=== PATIENT | male | born 1985 | race Two or more races ===

== ENCOUNTER 2017-03-31 19:08 | Emergency (ER) | payer SELFPAY ==
[2017-03-31] MEDS ORDERED: ONDANSETRON HCL INJ/PF 4 MG/2 ML SDV IV ONE (19:23)
--- NOTE | 2017-03-31 19:24 | ER Document Report ---
ED Medical Screen (RME) - General Chief Complaint: Back Pain Stated Complaint: GROIN PAIN Time Seen by Provider: 03/31/17 19:20 TRAVEL OUTSIDE OF THE [place] IN LAST 30 DAYS: No - HPI Notes: 03/31/17 19:23 Pain underneath patient scrotum her for states scrotum is symmetric no change in the waist testicles look today. Patient states pain started after he picked up his girlfriend. Also states multiple episodes of nausea vomiting. - Related Data Allergies/Adverse Reactions: No Known Allergies Allergy (Unverified 03/31/17 19:17) Past Medical History Renal/ Medical History: Denies: Hx Peritoneal Dialysis Review of Systems - Review of Systems Gastrointestinal: Nausea, Vomiting Physical Exam - Vital signs Vitals: Temp Pulse Resp BP Pulse Ox 98.9 F 117 H 18 91/71 L 100 03/31/17 19:12 03/31/17 19:12 03/31/17 19:12 03/31/17 19:12 03/31/17 19:12 - Cardiovascular Rhythm: Regular Heart sounds: Normal auscultation Course - Vital Signs Vital signs: Temp Pulse Resp BP Pulse Ox 98.9 F 117 H 18 91/71 L 100 03/31/17 19:12 03/31/17 19:12 03/31/17 19:12 03/31/17 19:12 03/31/17 19:12
[2017-03-31 19:34] LABS: ABSOLUTE BASOPHILS # (AUTO) 0.1 10^3/uL (0.0-0.2); ABSOLUTE LYMPHOCYTES (AUTO) 1.5 10^3/uL (0.5-4.7); ABSOLUTE NEUT (AUTO) 5.9 10^3/uL (1.7-8.2); BASOPHILS % (AUTO) 1.1 % (0-2); EOSINOPHILS % (AUTO) 0.1 % (0-6); HEMATOCRIT 48.3 % (37.9-51.0); HEMOGLOBIN 16.4 g/dL (13.5-17.0); HGB HCT DIFFERENCE 0.9; LYMPHOCYTES % (AUTO) 17.1 % (13-45); MEAN CORPUSCULAR VOLUME 86 fl (80-97); MONOCYTES % (AUTO) 12.2 % (3-13); RED BLOOD COUNT 5.64 10^6/uL (4.35-5.55); RED CELL DISTRIBUTION WIDTH 13.7 % (11.5-14.0); SEGMENTED NEUTROPHILS % (AUTO) 69.5 % (42-78); WHITE BLOOD COUNT 8.5 10^3/uL (4.0-10.5)
[2017-03-31 19:57] LABS: ALANINE AMINOTRANSFERASE 26 U/L (21-72); ALBUMIN 4.7 g/dL (3.5-5.0); ALKALINE PHOSPHATASE 56 U/L (38-126); ANION GAP 12 (5-19); ASPARTATE AMINO TRANSFERASE 22 U/L (17-59); BILIRUBIN,DIRECT 0.4 mg/dL (0.0-0.4); BLOOD UREA NITROGEN 15 mg/dL (7-20); CALCIUM 10.1 mg/dL (8.4-10.2); CARBON DIOXIDE 26 mmol/L (22-30); CHLORIDE 100 mmol/L (98-107); CREATININE RESULT 1.21 mg/dL (0.52-1.25); GLUCOSE 93 mg/dL (75-110); LIPASE 37.9 U/L (23-300); POTASSIUM 4.5 mmol/L (3.6-5.0); SODIUM 138.3 mmol/L (137-145); TOTAL PROTEIN 8.4 g/dL (6.3-8.2)
--- NOTE | 2017-03-31 20:14 | ER Document Report ---
ED GI/ - General Chief Complaint: Back Pain Stated Complaint: GROIN PAIN Time Seen by Provider: 03/31/17 19:20 Mode of Arrival: Ambulatory Information source: Patient Notes: 31-year-old male presents to ED for scrotal pain and low back pain abdominal pain and nausea and vomiting since last night when he picked up his girlfriend. He states he's had vomiting 3 today last one at 11:00 this morning. TRAVEL OUTSIDE OF THE [place] IN LAST 30 DAYS: No - HPI Patient complains to provider of: Groin pain, Other - Back pain Onset: Yesterday Timing/Duration: Intermittent Quality of pain: Sharp Severity at maximum: Moderate Severity in ED: Moderate Pain Level: 4 Location: Pelvis, Left testicle, Right testicle, Other - Low back Associated symptoms: Nausea, Vomiting Exacerbated by: Movement, Walking Relieved by: Denies Similar symptoms previously: No Recently seen / treated by doctor: No - Related Data Allergies/Adverse Reactions: No Known Allergies Allergy (Verified 03/31/17 20:28) Past Medical History - General Information source: Patient - Social History Smoking Status: Current Every Day Smoker Cigarette use (# per day): Yes - half pack a day Chew tobacco use (# tins/day): No Smoking Education Provided: Yes - acetaminophen Frequency of alcohol use: None Drug Abuse: None Occupation: review Lives with: Parents Family History: Arthritis, CAD, COPD, Hyperlipidemia, Hypertension Patient has suicidal ideation: No Patient has homicidal ideation: No - Past Medical History Cardiac Medical History: Reports: None Pulmonary Medical History: Reports: None EENT Medical History: Reports: None Neurological Medical History: Reports: None Endocrine Medical History: Reports: None Renal/ Medical History: Reports: None Malignancy Medical History: Reports None GI Medical History: Reports: None Musculoskeltal Medical History: Reports Hx Musculoskeletal Deformity - Scoliosis , Reports Hx Musculoskeletal Trauma - Fractured ankle Skin Medical History: Reports Hx Cellulitis Psychiatric Medical History: Reports: None Traumatic Medical History: Reports: Hx Fractures - Ankle Infectious Medical History: Reports: None Surgical Hx: Negative Past Surgical History: Reports: None - Immunizations Immunizations up to date: Yes Hx Diphtheria, Pertussis, Tetanus Vaccination: Yes Review of Systems - Review of Systems Constitutional: Recent illness EENT: No symptoms reported Cardiovascular: No symptoms reported Respiratory: No symptoms reported Gastrointestinal: Nausea, Vomiting Genitourinary: No symptoms reported Male Genitourinary: Other - Bilateral scrotal pain Musculoskeletal: Back pain Skin: No symptoms reported Hematologic/Lymphatic: No symptoms reported Neurological/Psychological: No symptoms reported Physical Exam - Vital signs Vitals: Temp Pulse Resp BP Pulse Ox 98.9 F 117 H 18 91/71 L 100 03/31/17 19:12 03/31/17 19:12 03/31/17 19:12 03/31/17 19:12 03/31/17 19:12 Interpretation: Normal - General General appearance: Appears well, Alert - HEENT Head: Normocephalic, Atraumatic Eyes: Normal Pupils: PERRL - Respiratory Respiratory status: No respiratory distress Chest status: Nontender Breath sounds: Normal Chest palpation: Normal - Cardiovascular Rhythm: Regular Heart sounds: Normal auscultation Murmur: No - Abdominal Inspection: Normal Distension: No distension Bowel sounds: Normal Tenderness: Nontender Organomegaly: No organomegaly - Genitourinary Inspection: Normal Tenderness: Testicle tender. No: Epididymis tender Cremasteric reflex: Normal Scrotum: Normal Notes: Rectal exam did not show any prostate tenderness or bogginess. Good muscle tone. - Back Back: Normal, Tender - Bilateral muscle tenderness no vertebral tenderness. No : Deformity/step-off, CVA tenderness, Vertebra tenderness, Scars, Wounds - Extremities General upper extremity: Normal inspection, Nontender, Normal color, Normal ROM , Normal temperature General lower extremity: Normal inspection, Nontender, Normal color, Normal ROM , Normal temperature, Normal weight bearing. No: Floyd's sign - Neurological Neuro grossly intact: Yes Cognition: Normal Orientation: AAOx4 [place] Coma Scale Eye Opening: Spontaneous [place] Coma Scale Verbal: Oriented [place] Coma Scale Motor: Obeys Commands [place] Coma Scale Total: 15 Speech: Normal Motor strength normal: LUE, RUE, LLE, RLE Sensory: Normal - Psychological Associated symptoms: Normal affect, Normal mood - Skin Skin Temperature: Warm Skin Moisture: Dry Skin Color: Normal Course - Re-evaluation Re-evalutation: 03/31/17 22:10 Patient will be treated with Rocephin 250 mg IM and azithromycin 1 g for his testicular tenderness GC and Chlamydia sent patient to call back either in a couple hours or in the morning for the results of this. Urine and labs are all negative so far. Patient has been treated with 2 L of fluid some Zofran has been able to keep down fluids and has been given some Gatorade and states he has not had any nausea with this either. Patient will be instructed to follow- up with his primary doctor or return to the ED for any increase in pain. He is treated with ibuprofen for his discomfort. 04/01/17 02:11 GC and chlamydia both negative. - Vital Signs Vital signs: Temp Pulse Resp BP Pulse Ox 100.5 F H 93 16 111/51 L 98 03/31/17 22:36 03/31/17 22:36 03/31/17 22:36 03/31/17 22:36 03/31/17 22:36 - Laboratory Result Diagrams: 03/31/17 19:25 03/31/17 19:25 Laboratory results interpreted by me: 03/31/17 03/31/17 03/31/17 19:25 19:25 21:35 RBC 5.64 H Total Protein 8.4 H Urine Ketones 20 H Urine Urobilinogen 2.0 H Discharge - Discharge Clinical Impression: Myalgia Low back pain Qualifiers: Chronicity: acute Back pain laterality: bilateral Sciatica presence: without sciatica Qualified Code(s): M54.5 - Low back pain Groin pain Qualifiers: Laterality: unspecified laterality Qualified Code(s): R10.30 - Lower abdominal pain, unspecified Condition: Stable Disposition: HOME, SELF-CARE Instructions: Family Physicians / Practices Additional Instructions: LOW BACK PAIN: Three out of every four people will have an episode of disabling back pain during their lifetime. Most commonly the pain is due to straining of the muscles and ligaments in the low back. Usual treatment includes: (1) Rest on a firm surface. Avoid lying on your stomach. (2) Ice pack the painful area. After a few days, gentle heat may be used intermittently to relax the area, or ice packs can be continued. (3) Medication may be needed -- muscle relaxers and antiinflammatory medicines are commonly used. (4) As the back improves, exercises are prescribed to strengthen the back and abdominal muscles. Your doctor will advise you on the proper care for your back at each stage in your recovery. You may be better in a few days -- or healing may take several weeks. If new symptoms of a "herniated disc" (radiation of pain, numbness, or tingling down the back of the leg or weakness in the leg) occur, you should be re-examined. Further testing may be necessary. Rocephin You have been given an injection of an antibiotic called Rocephin ( ceftriaxone). Sometimes the injection must be combined with antibiotic pills. For some infections, such as an uncomplicated ear infection, Rocephin provides all the antibiotic that's needed. The antibiotic will be in your body for about two days. For serious infections, we usually repeat doses of Rocephin daily. Side effects are very unusual following a shot. Women may develop vaginal yeast infections, and babies can get yeast (thrush) in the mouth following the use of antibiotics. Contact your physician if you have symptoms with this medication. Allergy to this antibiotic can result in hives, wheezing, faintness, or itching. If symptoms of allergy occur, call the doctor at once. Azithromycin Azithromycin (Zithromax) is a broad spectrum antibiotic in the same class as erythromycin. It can treat a variety of bacterial infections, but is most frequently used for respiratory infections. Azithromycin is extremely long-lasting. It accumulates in body tissues and continues to kill bacteria for many days. In order to improve absorption, Azithromycin should be taken at least one hour before or two hours after a meal. It does not have the same strong tendency to upset the stomach as erythromycin and is usually very well tolerated. Patients who have had a rash or other true allergic reactions to erythromycin should not take this medication. Call if you develop gastrointestinal distress, severe diarrhea, rash, hives, itching, or shortness of breath. ICE PACKS: Apply ice packs frequently against the painful area. Many different schedules are recommended, such as "20 minutes on, 20 minutes off" or "one hour ice, two hours rest." If you need to work, you may need to go longer between ice treatments. You should plan to have the area ice packed AT LEAST one fourth of the time. The ice should be applied over the wrap, tape, or splint, or over a layer of cloth -- not directly against the skin. Some ice bags have a built-in cloth and can be put directly on the skin. WARM PACKS: After approximately two days, apply gentle heat (such as a heating pad or hot water bottle) for about 20 to 30 minutes about every two hours -- at least four times daily. Warmth and elevation will help you make a more rapid recovery , and will ease the pain considerably. Do not use HOT heat, and never apply heat for longer than 30 minutes. The continuous heat can invisibly damage skin and muscles -- even when no burn is seen on the surface. Damaged muscles can make you MORE sore. Ibuprofen Ibuprofen is an excellent, safe drug for pain control. In addition, it has potent antiinflammatory effects which are beneficial, especially in the treatment of injuries, arthritis, or tendonitis. It's best to take ibuprofen with food. Persons with ulcer disease or allergy to aspirin should notify their physician of this before taking ibuprofen. Take the medication exactly as prescribed. Don't take additional doses unless instructed to do so by your doctor. If you develop wheezing, shortness of breath, hives, faintness, stomach pain, vomiting, or dark black stools, return for re-evaluation at once. FOLLOW-UP CARE: If you have been referred to a physician for follow-up care, call the physician s office for an appointment as you were instructed or within the next two days. If you experience worsening or a significant change in your symptoms, notify the physician immediately or return to the Emergency Department at any time for re-evaluation. Forms: Elevated Blood Pressure, Smoking Cessation Education, Return to Work
[2017-03-31] MEDS: NORMAL SALINE 1000 ML 1,000 ML IV PRN ×2 (20:19→22:43)
[2017-03-31 21:52] LABS: APPEARANCE,URINE CLEAR; BILIRUBIN,URINE NEGATIVE (NEGATIVE); GLUCOSE, URINE NEGATIVE (NEGATIVE); KETONES,URINE 20 mg/dL (NEGATIVE); LEUKOCYTE ESTERASE,URINE NEGATIVE (NEGATIVE); NITRITE,URINE NEGATIVE (NEGATIVE); PROTEIN,URINE NEGATIVE (NEGATIVE); URINE SPECIFIC GRAVITY 1.019
[2017-03-31] MEDS ORDERED: AZITHROMYCIN 250 MG TABLET PO ONE (22:06)
[2017-03-31] MEDS ORDERED: CEFTRIAXONE INJ 250 MG VIAL IM ONE (22:06)
[2017-03-31] MEDS ORDERED: LIDOCAINE 1% INJ-PF (10 MG/ML) 30 ML SDV INJ ONE (22:06)
[2017-03-31] MEDS ORDERED: IBUPROFEN 800 MG TABLET PO ONE (22:12)
[2017-03-31 22:43] VITALS: BP 111/51
[2017-03-31 23:18] LABS: CHLAM PCR NOT DETECTED (NOT DETECT)
== END 2017-03-31 23:05 | disposition home or self-care (01) ==
LOC: ER 19:08
DX: R10.2 Pelvic and perineal pain (principal); N50.82 Scrotal pain; M54.5 Low back pain; R11.2 Nausea with vomiting, unspecified; N50.812 Left testicular pain; N50.811 Right testicular pain; M79.1 Myalgia; F17.210 Nicotine dependence, cigarettes, uncomplicated; Z71.6 Tobacco abuse counseling
CPT/HCPCS: 99283; 96372; 96360; 96361; 36415; 83690; 85025; 80053; 81001; 87491; 87591; J3490; J7030; J0696

== ENCOUNTER 2018-07-08 03:40 | Emergency (ER) | payer OTHER ==
[2018-07-08] MEDS ORDERED: MORPHINE SULFATE 10 MG/ML INJ IM ONE (06:14)
[2018-07-08] MEDS ORDERED: IBUPROFEN 600 MG TABLET PO ONE (06:14)
[2018-07-08] MEDS ORDERED: CYCLOBENZAPRINE HCL 10 MG TABLET PO ONE (06:15)
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
[2018-07-08 08:02] VITALS: BP 108/65
== END 2018-07-08 08:02 | disposition home or self-care (01) ==
LOC: ER 03:40
DX: S16.1XXA Strain of muscle, fascia and tendon at neck level, initial encounter (principal); S29.019A Strain of muscle and tendon of unspecified wall of thorax, initial encounter; M54.5 Low back pain; M54.2 Cervicalgia; M54.6 Pain in thoracic spine; V87.7XXA Person injured in collision between other specified motor vehicles (traffic), initial encounter; F17.210 Nicotine dependence, cigarettes, uncomplicated
CPT/HCPCS: 99284; 96372; 72125; 72128; J2270

== ENCOUNTER 2019-02-25 21:17 | Emergency (ER) | payer SELFPAY ==
[2019-02-25 21:57] VITALS: BP 144/95
[2019-02-25] MEDS ORDERED: DEXAMETHASONE SOD PHOS INJ 10 MG/1 ML VIAL IM ONE (23:09)
[2019-02-25] MEDS ORDERED: HYDROCODONE/ACETAMINOPHEN 5-325 MG TABLET PO ONE (23:10)
--- NOTE | 2019-02-25 23:12 | ER Document Report ---
ED General - General Chief Complaint: Toothache Stated Complaint: EAR PAIN/TOOTH PAIN Time Seen by Provider: 02/25/19 22:49 Notes: Patient is a 33-year-old male who presents with complaint of right ear pain and pressure into the right side of face and into the jaw. He says most pain is more on the right ear. Has had some nasal congestion. This is been ongoing for several days. No fevers. No vomiting. No difficulty breathing. No other complaints at this time. TRAVEL OUTSIDE OF THE [place] IN LAST 30 DAYS: No - Related Data Allergies/Adverse Reactions: No Known Allergies Allergy (Verified 03/31/17 20:28) Past Medical History - Social History Smoking Status: Current Every Day Smoker Frequency of alcohol use: None Drug Abuse: None Family History: Arthritis, CAD, COPD, Hyperlipidemia, Hypertension Renal/ Medical History: Denies: Hx Peritoneal Dialysis Musculoskeletal Medical History: Reports Hx Musculoskeletal Deformity - Scoliosis, Reports Hx Musculoskeletal Trauma - Fractured ankle Skin Medical History: Reports Hx Cellulitis Traumatic Medical History: Reports: Hx Fractures - Ankle - Immunizations Immunizations up to date: Yes Hx Diphtheria, Pertussis, Tetanus Vaccination: Yes Review of Systems - Review of Systems Notes: My Normal Review Basic REVIEW OF SYSTEMS: CONSTITUTIONAL : Denies fever, chills, or sweats. Denies recent illness. EENT: Right ear pain RESPIRATORY: Denies cough, cold, or chest congestion. Denies shortness of breath, difficulty breathing, or wheezing. GASTROINTESTINAL: Denies nausea, vomiting, or diarrhea. MUSCULOSKELETAL: Denies neck or back pain or joint pain or swelling. SKIN: Denies rash or skin lesions. NEUROLOGICAL: Denies altered mental status or loss of consciousness. Denies headache. Denies weakness or paralysis or loss of use of either side. Denies problems with gait or speech. Denies sensory or motor loss. ALL OTHER SYSTEMS REVIEWED AND NEGATIVE. Physical Exam - Vital signs Vitals: Temp Pulse Resp BP Pulse Ox 98.0 F 76 20 144/95 H 100 02/25/19 21:54 02/25/19 21:54 02/25/19 21:54 02/25/19 21:54 02/25/19 21:54 - Notes Notes: General Appearance: Well nourished, alert, cooperative, no acute distress, moderate obvious discomfort. Vitals: reviewed, See vital signs table. Head: no swelling or tenderness to the head Eyes: PERRL, EOMI, Conjuctiva clear Mouth: No decreasd moisture Throat: No tonsillar inflammation, No airway obstruction, No lymphadenopathy Ears: Patient has obvious fluid pressure 100 right TM. There is no redness or swelling. No signs of a bacterial otitis media. Left TM is normal appearing. Neck: Supple, no neck tenderness, No neck swelling Neuro: speech clear, oriented x 3, normal affect, responds appropriately to questions. Course - Re-evaluation Re-evalutation: 02/25/19 23:18 Patient is well-appearing. Feel the patient is safe to be discharged home. He appears to have sinus congestion sinus pressure that is leading to increasing pressure behind the right ear which is causing him pain. I will give a dose of Decadron. I will have him start taking nitx-xeo-ficoxcn nasal decongestants. I encouraged him return to ER if he has fevers, worsening pain, or feels unwell. Patient agrees with plan will be discharged home. Dictation of this chart was performed using voice recognition software; therefore, there may be some unintended grammatical errors. - Vital Signs Vital signs: Temp Pulse Resp BP Pulse Ox 98.0 F 76 20 144/95 H 100 02/25/19 21:54 02/25/19 21:54 02/25/19 21:54 02/25/19 21:54 02/25/19 21:54 Discharge - Discharge Clinical Impression: Serous otitis media Qualifiers: Chronicity: acute Laterality: right Recurrence: non-recurrent Qualified Code(s): H65.01 - Acute serous otitis media, right ear URI (upper respiratory infection) Qualifiers: URI type: unspecified URI Qualified Code(s): J06.9 - Acute upper respiratory infection, unspecified Condition: Good Disposition: HOME, SELF-CARE Additional Instructions: You have fluid behind your right ear that is causing pressure and pain that you are feeling. Your ear is not infected. Antibiotics will not be helpful at this time. Treatment is with nasal decongestants. Medications such as Sudafed can be purchased [id number] and will help. Please do not smoke. Please consider using cold packs against the right side of your face where feeling the pressure. Please return to ER immediately if you have fevers, worsening pain, or feel that you are worsening in any way. Take [id number]-yoluphb pain medicine such as Tylenol 500 mg every 4 hours or ibuprofen 400 mg every 6 hours.
== END 2019-02-25 23:42 | disposition home or self-care (01) ==
LOC: ER 21:17
DX: H65.01 Acute serous otitis media, right ear (principal); J06.9 Acute upper respiratory infection, unspecified; K08.89 Other specified disorders of teeth and supporting structures; H92.01 Otalgia, right ear; R51 Headache; R68.84 Jaw pain; R09.81 Nasal congestion; F17.200 Nicotine dependence, unspecified, uncomplicated
CPT/HCPCS: 99282; 96372; J1100

== ENCOUNTER 2019-08-09 18:45 | Emergency (ER) | payer SELFPAY ==
[2019-08-09] MEDS ORDERED: KETOROLAC TROMETHAMINE 60 MG/2 ML SDV IM ONE (20:01)
[2019-08-09] MEDS ORDERED: LIDOCAINE 5% (700 MG) TRANSDERMAL ADH..PATCH TP ONE (20:01)
--- NOTE | 2019-08-09 20:07 | ER Document Report ---
HPI - HPI Time Seen by Provider: 08/09/19 19:56 Pain Level: 5 Notes: Patient is a 33-year-old male with no significant past medical history who presents complaining of right lower dental pain #30 as well as right ear pain today. Patient states that the pain did not radiate. He is not sure if one is related to the other. He is able to eat and drink without difficulty, but does have a decreased p.o. intake. He is urinating normally and having normal bowel movements. Denies drug allergies. Denies any headache, fever, head injury, neck pain, drooling, hoarseness, URI, sore throat, chest pain, palpitations, syncope, cough, shortness of breath, wheeze, dyspnea, abdominal pain, nausea/vomiting/diarrhea, urinary retention, dysuria, hematuria, or rash. - ROS Systems Reviewed and Negative: Yes All other systems reviewed and negative Past Medical History - Social History Smoking Status: Unknown if Ever Smoked Family History: Arthritis, CAD, COPD, Hyperlipidemia, Hypertension Renal/ Medical History: Denies: Hx Peritoneal Dialysis Musculoskeletal Medical History: Reports Hx Musculoskeletal Deformity - Scoliosis, Reports Hx Musculoskeletal Trauma - Fractured ankle Skin Medical History: Reports Hx Cellulitis Traumatic Medical History: Reports: Hx Fractures - Ankle - Immunizations Immunizations up to date: Yes Hx Diphtheria, Pertussis, Tetanus Vaccination: Yes Vertical Provider Document - CONSTITUTIONAL Agree With Documented VS: Yes Notes: PHYSICAL EXAMINATION: GENERAL: Well-appearing, well-nourished and in no acute distress. HEAD: Atraumatic, normocephalic. EYES: Pupils equal round and reactive to light, extraocular movements intact, sclera anicteric, conjunctiva are normal. ENT: EAC clear b/l. + tenderness rt EAC w/o significant occlusion or discharge. TM's intact b/l without erythema, fluid, or perforation. Nares patent and without discharge. oropharynx clear without exudates. No tonsilar hypertrophy or erythema. Moist mucous membranes. No sinus tenderness. Uvula midline. No palatine shift. No tongue protrusion. No respiratory compromise. Mouth: Poor dentition. + mild decay and mild gingivitis. No obvious abscess or discharge noted. No facial swelling. + tenderness to tooth #30. NECK: Normal range of motion, supple without lymphadenopathy. No rigidity/meningismus. LUNGS: Breath sounds clear to auscultation bilaterally and equal. No wheezes rales or rhonchi. HEART: Regular rate and rhythm without murmurs, rubs, gallops. NEUROLOGICAL: Cranial nerves grossly intact. Normal speech, normal gait. Normal sensory, motor exams PSYCH: Normal mood, normal affect. SKIN: Warm, Dry, normal turgor, no rashes or lesions noted. - INFECTION CONTROL TRAVEL OUTSIDE OF THE [place] IN LAST 30 DAYS: No Course - Re-evaluation Re-evalutation: 08/09/19 20:04 Patient is an afebrile, well-hydrated, 33-year-old male who presents to the ED with rt acute otitis externa and dental pain, suspect nerve root etiology versus infection. Vitals are acceptable. PE is otherwise unremarkable. Rt inferior alveolar nerve dental block performed successfully without any complications. Pt's dental pain gone after block (only temporary however). No I&D, labs, or imaging warranted at this time based on H&P. Viscous lidocaine dispensed today and toradol given IM. I will send him home with a prescription for penicillin/ciprodex. Low suspicion for any meningitis, sepsis, peritonsillar/pharyngeal abscess, respiratory compromise, Antoine's, temporal arteritis, or other emergent systemic condition at this time. Patient is aware this condition can change from initial presentation and he needs to monitor symptoms closely. Conservative measures otherwise for symptoms. Call to schedule an appointment with a dentist for further evaluation and management. Recheck with your PCM this week as well. Return to the ED with any worsening/concerning symptoms otherwise as reviewed in discharge. Patient is in agreement. - Vital Signs Vital signs: Temp Pulse Resp BP Pulse Ox 98.1 F 53 L 16 117/76 100 08/09/19 19:00 08/09/19 19:00 08/09/19 19:00 08/09/19 19:00 08/09/19 19:00 Procedures - Additional Procedures Dental Block Additional Procedures: Other - Inferior alveolar rt dental block to #30 using 1.5" 25g with 2.5cc sensorcaine. Discharge - Discharge Clinical Impression: Pain, dental Right otitis externa Qualifiers: Otitis externa type: unspecified type Chronicity: acute Qualified Code(s): H60.501 - Unspecified acute noninfective otitis externa, right ear Condition: Stable Disposition: HOME, SELF-CARE Instructions: Otitis Externa ([facility]), Penicillin V K ([facility]), Toothache ([facility]) Additional Instructions: Elaine and floss twice daily Keep ears clean and avoid use of q-tips Maintain fluid intake Take antibiotics as directed Mouthwash, salt water gargles, peroxide rinse as needed Tylenol/ibuprofen as needed Recheck with PCM this week Call today/tomorrow and schedule an appointment with your dentist for further evaluation Return to the ED with any worsening symptoms and/or development of fever, headache, facial swelling, swelling of lips/tongue/throat, trouble swallowing, drooling, hoarseness, neck pain/stiffness, chest pain, palpitations, syncope, shortness of breath, trouble breathing, abdominal pain, n/v/d, numbness/tingling, or other worsening symptoms that are concerning to you. Prescriptions: Ciprofloxacin HCl/Dexameth [Ciprodex Otic Suspension 7.5 ml Bottle] 4 drop OT BID #1 bottle Penicillin V Potassium [Penicillin Vk 250 mg Tablet] 500 mg PO BID #40 tablet Referrals: [facility] [Provider Group] - Follow up as needed DENISSE DAY DO [ASSOCIATE] - Follow up as needed
[2019-08-09] MEDS ORDERED: BUPIVACAINE HCL 0.75% INJ/PF (7.5 MG/1 ML) 10 ML SDV INJ ONE (20:09)
[2019-08-09] MEDS ORDERED: LIDOCAINE 2% VISCOUS SOLN 20 ML UDCUP PO ONE (20:39)
[2019-08-09 20:55] VITALS: BP 112/67
--- NOTE | 2019-08-11 15:38 | ER Document Report ---
Doctor's Note Notes: 08[facility]11/19 15:37 [facility] could not afford the C[facility]dex drops. Pharmacy was instructed to use polymyxin 4 drops twice daily for 10 days.
== END 2019-08-09 20:55 | disposition home or self-care (01) ==
LOC: ER 18:45
DX: H60.501 Unspecified acute noninfective otitis externa, right ear (principal); H92.01 Otalgia, right ear; K08.9 Disorder of teeth and supporting structures, unspecified
CPT/HCPCS: 64400; J3490 ×2; J1885

== ENCOUNTER 2020-03-23 13:56 | Emergency (ER) | payer OTHER ==
[2020-03-23 14:04] VITALS: BP 127/71
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
== END 2020-03-23 15:19 | disposition home or self-care (01) ==
LOC: ER 13:56
DX: M54.5 Low back pain (principal); V49.50XA Passenger injured in collision with unspecified motor vehicles in traffic accident, initial encounter; F17.200 Nicotine dependence, unspecified, uncomplicated; M47.817 Spondylosis without myelopathy or radiculopathy, lumbosacral region
CPT/HCPCS: 72110; 99283